=== PATIENT | male | born 1980 | race Caucasian/White ===

== ENCOUNTER 2018-03-25 11:11 | Emergency (ER) | payer OTHER ==
[~2018-03-25] VITALS: Ht 180.3 cm; Wt 83.9 kg
[~2018-03-25 11:11] MED LIST: ALBU90OI6 INH; AZIT250 PO; HYDACE10B PO; IBUP600 PO; NAPR500 PO; NAPR550 PO; OXYACE5T PO; PROCODE120 PO; RXPROCODSY PO
[2018-03-25] MEDS ORDERED: CEPH500 PO (12:47)
[2018-03-25] MEDS ORDERED: Bactrim Ds Tab1 EACH PO (12:47)
== END 2018-03-25 12:50 | disposition home or self-care (01) ==
LOC: ER 11:11
DX: L02.11 Cutaneous abscess of neck (principal); F17.210 Nicotine dependence, cigarettes, uncomplicated
CPT/HCPCS: 10060; 99283